=== PATIENT | female | born 1980 | race Caucasian/White ===

== ENCOUNTER → 2018-05-03 | Outpatient (CLI) | payer OTHER ==
[~2018-05-03] MED LIST: B-12 500 MCG PO; CENTRUM1 TA1 PO; CITRACAL + D CA1 TAB PO; GLUCOSAMINE 1000 PO; ZYRTEC 10MG10 MG PO
== END ==
LOC: LIGHT 13:01
DX: Z01.818 Encounter for other preprocedural examination (principal); E66.01 Morbid (severe) obesity due to excess calories; Z68.37 Body mass index [BMI] 37.0-37.9, adult; Z71.3 Dietary counseling and surveillance

== ENCOUNTER → 2018-07-25 | Outpatient (CLI) | payer OTHER ==
[~2018-07-25] VITALS: Ht 163.8 cm; Wt 89.1 kg
[2018-07-25 13:19] VITALS: BP 100/60; PULSE 84
== END ==
LOC: LIGHT 10:47
DX: Z98.84 Bariatric surgery status (principal); Z68.33 Body mass index [BMI] 33.0-33.9, adult; Z71.3 Dietary counseling and surveillance
CPT/HCPCS: G0463

== ENCOUNTER → 2018-12-26 | Outpatient (CLI) | payer OTHER ==
[~2018-12-26] VITALS: Ht 163.8 cm; Wt 85.5 kg
[~2018-12-26] MED LIST changes: +HAIRSKINNAILS PO; +SINGULAIR 110 MG/TAB PO
[2018-12-26 15:32] VITALS: BP 106/62; PULSE 73
== END ==
LOC: LIGHT 14:49
DX: Z98.84 Bariatric surgery status (principal); Z71.3 Dietary counseling and surveillance; Z68.31 Body mass index [BMI] 31.0-31.9, adult
CPT/HCPCS: G0463